=== PATIENT | female | born 2000 | race Caucasian/White ===

== ENCOUNTER 2022-03-04 18:21 | Emergency (ER) | payer BC ==
[~2022-03-04] VITALS: Ht 160 cm; Wt 68.0 kg
[2022-03-04 18:27] VITALS: BP 120/71
--- NOTE | 2022-03-04 19:14 | NUR ---
AT BEDSIDE FOR EVAL.
[2022-03-04] MEDS ORDERED: IBUPROFEN 600 MG TABLET ONE (19:34)
[2022-03-04] MEDS ORDERED: TDAP [DIPH/PERTUSSIS/TET] 0.5 ML VIAL IM ONE (19:35)
[2022-03-04] MEDS: TDAP [DIPH/PERTUSSIS/TET] 0.5 ML VIAL IM ONE (19:40)
[2022-03-04] MEDS: IBUPROFEN 600 MG TABLET PO ONE (19:41)
[2022-03-04] MEDS: BACI/NEOM/POLY B OINT PKT 1 UDPKT PACKET TP ONE (19:41)
[2022-03-04] MEDS ORDERED: CYCL5TAB PO (20:17)
[2022-03-04] MEDS ORDERED: IBUP-1955 PO (20:17)
--- NOTE | 2022-03-04 20:28 | NUR ---
Patient discharged to home in stable condition. Written and verbal after care instructions given. Patient verbalizes understanding of instruction.
== END 2022-03-04 20:55 | disposition home or self-care (01) ==
LOC: ER 18:24
DX: S16.1XXA Strain of muscle, fascia and tendon at neck level, initial encounter (principal); S50.312A Abrasion of left elbow, initial encounter; V89.2XXA Person injured in unspecified motor-vehicle accident, traffic, initial encounter; Y93.89 Activity, other specified; Y92.89 Other specified places as the place of occurrence of the external cause; Y99.8 Other external cause status
CPT/HCPCS: 90715